=== PATIENT | male | born 1965 ===

== ENCOUNTER 2016-07-12 08:04 | Emergency (ER) | payer BC ==
[2016-07-12 08:42] VITALS: BP 151/94
--- NOTE | 2016-07-12 09:02 | UC ---
Skin Complaint HPI - HPI Summary HPI Summary: very itchy skin for 2d. No known cause. NO rash, no hives, no known allergies. He had a sexual contact a while ago he is concerned about, and would like to be "tested for every STD." The contact did not have a known disease. NO fever. No rash or external abnormalities. No penile discharge. - History of Current Complaint Chief Complaint: UCSTDScreening Time Seen by Provider: 07/12/16 08:44 Stated Complaint: STD TEST Hx Obtained From: Patient Onset/Duration: Gradual Onset Timing: Constant Onset Severity: Mild Current Severity: Mild Location: Diffuse Character: Pruritus Aggravating: Nothing Alleviating: Nothing Associated Signs & Symptoms: Positive: Negative - Allergy/Home Medications Allergies/Adverse Reactions: Allergies Allergy/AdvReac Type Severity Reaction Status Date / Time Metoclopramide [From Reglan] Allergy Hallucinati Verified 07/12/16 08:36 ons Shellfish Allergy Allergy Swelling Verified 07/12/16 08:36 Of Face,Lips,& Throat NSAIDs AdvReac See Comment Verified 07/12/16 08:36 Home Medications: Home Medications Azelastine 0.15% NASAL(NF) [Astepro 0.15% NASAL (NF)] 1 spray NASAL BID PRN [History Confirmed 07/12/16] Cholecalciferol TAB* [Vitamin D TAB*] 4,000 units PO DAILY 07/12/16 [History Confirmed 07/12/16] Cyanocobalamin TAB* [Vitamin B12 TAB*] 500 mcg PO DAILY 07/12/16 [History Confirmed 07/12/16] Epleronone (NF) [Inspra (NF)] 25 mg PO DAILY 07/12/16 [History Confirmed ] Losartan/HCTZ 100/25 (NF) [Hyzaar 100/25 (NF)] 1 tab PO DAILY 07/12/16 [History Confirmed 07/12/16] Magnesium Oxide TAB* [MagOx 400 TAB*] 500 mg PO DAILY 07/12/16 [History Confirmed 07/12/16] Multivitamins/Minerals TAB* [Thera M Plus TAB*] 2 tab PO DAILY 07/12/16 [ History Confirmed 07/12/16] amLODIPine TAB* [Norvasc TAB*] 10 mg PO DAILY 07/12/16 [History Confirmed ] Review of Systems Constitutional: Negative Skin: Other - itching, no visible rash Eyes: Negative ENT: Negative Respiratory: Negative Cardiovascular: Negative Gastrointestinal: Negative Genitourinary: Negative Motor: Negative Neurovascular: Negative Musculoskeletal: Negative Neurological: Negative Psychological: Negative All Other Systems Reviewed And Are Negative: Yes PMH/Surg Hx/FS Hx/Imm Hx Endocrine History Of: Denies: Diabetes - He used to have DM II, but after gastric bypass, he got off Rx., Thyroid Disease, Hyperthyroidism, Hypothyroidism, Dyslipidemia Cardiovascular History Of: Reports: Hypertension - Stress tests and echocardiograms were normal 2 years ago and 11 years ago Denies: Cardiac Disorders, Pacemaker/ICD, Myocardial Infarction, Congestive Heart Failure, Atrial Fibrillation, Deep Vein Thrombosis, Bleeding Disorders Respiratory History Of: Denies: COPD, Asthma, Bronchitis, Pneumonia, Pulmonary Embolism GI/ History Of: Denies: Gastroesophageal Reflux, Ulcer, Gastrointestinal Bleed, Gall Bladder Disease, Kidney Stones, Diverticulitis, Renal Disease, Urosepsis Neurological History Of: Denies: TIA, CVA, Dementia, Seizures, Migraine Psychological History Of: Denies: Anxiety, Depression, Bipolar Disorder, Schizophrenia, Post Traumatic Stress Disorder Cancer History Of: Denies: Lung Cancer, Colorectal Cancer, Breast Cancer, Prostate Cancer, Cervical Cancer Other History Of: Negative For: HIV, Hepatitis B, Hepatitis C, Anticoagulant Therapy - Surgical History Surgical History: Yes Surgery Procedure, Year, and Place: gastric bypass 2011. LEFT KNEE SURGERY 1991. LEFT ANKLE 1997. RIGHT ELBOW 1998. GALLBLADDER 2002 - Family History Known Family History: Positive: None, Cardiac Disease, Hypertension, Diabetes - Social History Occupation: Employed Full-time - passenger coach driver for [employer] Lives: With Family Alcohol Use: Occasionally Substance Use Type: None Smoking Status (MU): Former Smoker Amount Used/How Often: 1/4 ppd Length of Time of Smoking/Using Tobacco: 8 years Have You Smoked in the Last Year: No When Did the Patient Quit Smoking/Using Tobacco: 1994 - Immunization History Most Recent Influenza Vaccination: March 2016 Most Recent Tetanus Shot: 2009 Physical Exam Triage Information Reviewed: Yes Appearance: Well-Appearing, No Pain Distress, Well-Nourished Vital Signs: Initial Vital Signs Temp 98.6 F 07/12/16 08:34 Pulse 100 07/12/16 08:34 Resp 16 07/12/16 08:34 BP 151/94 07/12/16 08:34 Pulse Ox 99 07/12/16 08:34 Vital Signs Reviewed: Yes Eye Exam: Normal ENT Exam: Normal Neck exam: Normal Respiratory Exam: Normal Cardiovascular Exam: Normal Musculoskeletal Exam: Normal Neurological Exam: Normal Psychological Exam: Normal Skin Exam: Normal Course/Dx - Course Course Of Treatment: STD testing sent - Differential Diagnoses - Skin Complaint Differential Diagnoses: Contact Dermatitis, Drug Rash, Tinea, Urticaria - Diagnoses Provider Diagnoses: pruritis Discharge - Discharge Plan Condition: Stable Disposition: HOME Patient Education Materials: Itchy Skin (ED) Additional Instructions: We sent a panel of test for: Gonorrhea, chlamydia, HIV, syphilis, hepatitis B and C. Results take about 3 days. Call here this weekend to verify your results if you haven't heard from us by then. It is unlikely your itching is due to any STD. Try over the counter Helen or Zyrtec for the itching during the day. Those will combat allergies, but won't make you drowsy
[2016-07-12 14:09] LABS: Syphilis Index < 0.1 Index
== END 2016-07-12 09:15 | disposition home or self-care (01) ==
LOC: UCCORT 08:04
DX: L29.9 Pruritus, unspecified (principal); Z11.3 Encounter for screening for infections with a predominantly sexual mode of transmission; Z11.4 Encounter for screening for human immunodeficiency virus [HIV]; Z98.84 Bariatric surgery status; Z88.6 Allergy status to analgesic agent; Z88.8 Allergy status to other drugs, medicaments and biological substances; Z87.891 Personal history of nicotine dependence
CPT/HCPCS: 36415; 86592; 86703; 86706; 86803; 87340; 87491; 87591; 99211; G0463